=== PATIENT | female | born 1940 | race Two or more races ===

== ENCOUNTER → 2017-12-28 | Outpatient (CLI) | payer MEDICARE, OTHER ==
--- NOTE | 2017-12-28 14:15 | US ---
EXAMINATION TYPE: US kidneys/renal and bladder DATE OF EXAM: 12/28/2017 COMPARISON: NONE CLINICAL HISTORY: N04.9 Nephrotic Syndrome. EXAM MEASUREMENTS: Right Kidney: 11.8 x 5.0 x 5.7 cm Left Kidney: 12.9 x 6.7 x 5.7 cm Right Kidney: 3.2 x 2.2 x 3.0 cm cyst laterally Left Kidney: No hydronephrosis or masses seen Bladder: slightly distended Bilateral Jets seen: No There is no evidence for hydronephrosis at this point in time. No nephrolithiasis is seen. No berkley s are identified. The urinary bladder is anechoic. Bilateral ureteral jets are seen. IMPRESSION: Noncentral cyst right kidney. Further characterization with CT is advised.
== END | disposition home or self-care (01) ==
LOC: RADUSWWP 13:13
PROVIDERS: ATTEND Family Medicine
DX: N28.1 Cyst of kidney, acquired (principal); N04.9 Nephrotic syndrome with unspecified morphologic changes
CPT/HCPCS: 76770